=== PATIENT | female | born 1995 | race Caucasian/White ===

== ENCOUNTER 2018-04-26 11:23 | Emergency (ER) | payer SELFPAY ==
[~2018-04-26] VITALS: Ht 154.9 cm; Wt 54.4 kg
[~2018-04-26 11:23] MED LIST: 'PARAFON FORTE500 M1 PO; HYDROCODONE BIT1 T11 PO; IRON90 MG PO; Motrin,Rufen800 MG PO
== END 2018-04-26 13:33 | disposition home or self-care (01) ==
LOC: ED 11:23
DX: S90.32XA Contusion of left foot, initial encounter (principal); F17.200 Nicotine dependence, unspecified, uncomplicated; Z79.899 Other long term (current) drug therapy; X58.XXXA Exposure to other specified factors, initial encounter; Y93.89 Activity, other specified; Y92.89 Other specified places as the place of occurrence of the external cause; Y99.8 Other external cause status